=== PATIENT | female | born 1975 | race Caucasian/White ===

== ENCOUNTER 2018-01-16 15:30 | Outpatient (RCR) ==
--- NOTE | 2018-01-16 16:39 | RS.OPPTEV2 ---
Date of Note: 01/11/18 Visit #: 1 Date of Evaluation: 01/11/18 Payer Source: Insurance Date of Onset/Injury/Change in Status: 05/31/14 Surgery Performed?: No Treatment Diagnosis: left thigh pain History of Condition/Mechanism of Injury:: Patient reports being diagnosed with Leukemia in April of 2014. She was started on a medication to treat Leukemia that month. 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 Reports no injury. She was taken off of the medication, and states it seems to have gotten a little better. States she has had Xrays, MRI, US with nothing irregular showing up on the tests. She went to a Chiropractor 3 times a week for 3 months , with no relief of the thigh pain. Prior Level of Function.....Patient was independent with: ADL's, Self Care, Work /Vocation, Caregiving, Ambulation/Mobility, Community Integration/Access Functional Limitations: Lifting, Ambulation, Community Access/Integration Current Subjective/complaints:: The patient reports left hip pain usually occurs with lifting the left leg, twisting, transferring from sit to stand, going downstairs, and walking backwards. States her pain does not lessen if she takes a rest from activity. Reports no pain with sitting. States she is currently walking 3 miles a day, four days a week on her treadmill. States walking on the treadmill does not cause pain. States she usually does not have pain when walking in a straight path. Treatment Side (optional): Left Medical History Medical History Comments:: Chronic Myeloid Leukemia (diagnosed 2013) Smoking Status: Never smoker Patient's Goals: Her goal is to get relief of left thigh pain. Pain Assessment - Pain Description Pain Location: left anterior thigh Pain Description: stabbing (like ice pick) Current Pain Intensity: 4/10 Worst Pain Intensity: 8/10 Functional Outcome Measure LE Functional Scale: 51 (51/80=36.25% impairment) - G Codes & Severity Modifier G Codes & Modifier: NA Source of G Code score: NA Observation - Observation Inspection: No obvious postural deviations. Gait - Gait Pattern General Gait Pattern Observation: No Deviations/Normal Hip ROM: Right WFL's Hip Muscle Strength: Right WFL's - Left Hip ROM Comments: Left hip AROM is WFL's. Left anterior thigh pain is reproduced with hip internal rotation, flexion past 100 degrees, and adduction with IR. - Left Hip Strength Left Hip Flexion: 4 Good Left Hip Extension: 4+ Good + Left Hip Abduction: 4+ Good + Left Hip Adduction: 5 Normal Left Hip External Rotation: 4 Good Left Hip Internal Rotation: 4 Good - Special Test ERASTO Test: Negative Left Mauri Test: Negative Left Knee ROM: Bilaterally WFL's Knee Muscle Strength: Bilaterally WFL's Palpation Comments:: Reports no superficial tenderness with palpation along the left anterior thigh. Sensation - Sensation Right Lower Extremity: Intact/Normal Left Lower Extremity: Intact/Normal Balance - Sitting Balance Static Sitting Balance: Normal Dynamic Sitting Balance: Normal - Standing Balance Static Standing Balance: Normal Dynamic Standing Balance: Normal Additional Comments: Additional Comments: Bilateral SLR to 45-50 degrees. Interventions - Exercise/Activities/Manual Therapy Exercises/Activities: Patient instructed in HEP of HS stretch, Piriformis stretch, hip flexor stretch, isometric hip adduction and resisted hip abduction with red band. also given green theraband to progress to. Advised to try standing on the right leg on a stool or step, while the left leg hangs for distraction at the hip joint. Manual Therapy: NA HOME EXERCISE PROGRAM: HS stretch, Piriformis stretch, hip flexor stretch, isometric hip adduction and resisted hip abduction with red band. also given green theraband to progress to. Advised to try standing on the right leg on a stool or step, while the left leg hangs for distraction at the hip joint. - Charges Timed Code Treatment Minutes: 0 Total Treatment Time: 45 mins Procedures billed for this date of service:: EVAL Low EVALUATION COMPLEXITY LEVEL EVALUATION COMPLEXITY LEVEL: HISTORY: Low, EXAM OF BODY SYSTEMS: Low, CLINICAL PRESENTATION: Low, CLINICAL DECISION MAKING: Low Assessment Assessment: Patient presents to therapy with diagnosis of recurring,stabbing pain in left thigh. Her medical histroy includes a diagnosis of Chronic Myeloid Leukemia. She exhibits a reproduction of pain with hip IR, flexion beyond 100 degrees, and Adduction w/IR. She exhibits areas of weakness in the left hip joint. She shows potential to benefit from stretching and strengthening the left hip joint to decrease her pain. Patient Education: Education of diagnosis, Body/Joint mechanics, Home Exercise Program, Activity Modification Short Term Goals Goal #1: Patient independent and compliant with HEP. Goal to be met by: 01/23/18 Goal #2: Pt to report less frequent pain in left anterior thigh. Goal to be met by: 01/30/18 Goal #3: Left hip strength 4+/5 throughout. Goal to be met by: 01/30/18 Inspector Aligning Goals Goal #1: Pt knows HEP and to continue ex's to maintain functional level after D/ C. Goal to be met by: 02/09/18 Goal #2: Pt to report left thigh pain frequency decreased to seldom. Goal to be met by: 02/09/18 Plan - Treatment to be Provided Procedures: Therapeutic Exercises, Therapeutic Activity, Patient Education Modalities: No Modalities - Treatment Plan Frequency: 1 X week Duration: 4 weeks ORDER # VISITS AND/OR THROUGH DATE: 02/09/18 - Treatment Code (1) Pain of thigh Qualifiers: Laterality: left Qualified Code(s): M79.652 - Pain in left thigh
--- NOTE | 2018-01-17 08:44 | RS.OPPTDN ---
Subjective Date of Note: 01/16/18 Visit #: 2 Date of Evaluation: 01/11/18 Payer Source: Insurance Treatment Diagnosis: left thigh pain Current Subjective/complaints:: States she has been performing exercises. States she has not always been able to get them in twice a day. She states she does feel better after performing the stretches. She feels that maybe her thigh pain has been less frequent since starting the stretches. Pain Assessment - Pain Description Pain Location: left anterior thigh Current Pain Intensity: no pain currently Interventions - Exercise/Activities/Manual Therapy Exercises/Activities: Receives stretching to the left LE into HS stretch, piriformis stretch, hip flexor stretch. Performs resisted hip abduction and isometric hip adduction without discomfort. Added resisted left hip ER with red theraband to add to HEP. Following streching, patient tried to reproduce her pain by getting into positions that usually are painful. She could not reproduce the pain. Total minutes of Exercise: 32 minutes Manual Therapy: NA HOME EXERCISE PROGRAM: HS stretch, Piriformis stretch, hip flexor stretch, isometric hip adduction and resisted hip abduction with red band. also given green theraband to progress to. Advised to try standing on the right leg on a stool or step, while the left leg hangs for distraction at the hip joint. - Charges Timed Code Treatment Minutes: 32 mins Total Treatment Time: 38 mins Procedures billed for this date of service:: EX2 Assessment: Monica appears to be compliant with stretching at home as instructed. She demonstrates the ability to continue exercises on her own. Stretching appears to have a positive affect so far on the left thigh pain, as she was uable to reproduce it following stretching today. Patient Education: Home Exercise Program, Activity Modification, Education of Plan of Care Patient demonstrates compliance with HEP?: Yes Short Term Goals Goal #1: Patient independent and compliant with HEP. Goal to be met by: 01/23/18 Progress towards Goal:: Met Goal #2: Pt to report less frequent pain in left anterior thigh. Goal to be met by: 01/30/18 Progress towards Goal:: Met Goal #3: Left hip strength 4+/5 throughout. Goal to be met by: 01/30/18 Progress towards Goal:: No Change Fabric Finisher Goals Goal #1: Pt knows HEP and to continue ex's to maintain functional level after D/ C. Goal to be met by: 02/09/18 Progress towards goal: Met Goal #2: Pt to report left thigh pain frequency decreased to seldom. Goal to be met by: 02/09/18 Progress towards goal: Progressing Plan PLAN OF CARE EXPIRES ON:: 02/09/18 ORDER # VISITS AND/OR THROUGH DATE: 02/09/18 PLAN: Will hold chart as patient continues HEP on her own. If no further therapy visits required within 2-3 weeks, will discharge patient.
== END 2018-01-26 23:59 ==
PROVIDERS: ATTEND Internal Medicine Hematology & Oncology
DX: M79.652 Pain in left thigh (principal); M79.606 Pain in leg, unspecified; C92.10 Chronic myeloid leukemia, BCR/ABL-positive, not having achieved remission